=== PATIENT | male | born 1995 | race Caucasian/White ===

== ENCOUNTER 2025-06-13 18:23 | Emergency (ER) | payer SELFPAY ==
[2025-06-13 19:39] LABS: Glucose, Urine (Dipstick) Normal (Negative); Leukocyte Negative (Negative); Protein, Urine (Dipstick) Negative (Neg-Trace); Specific Gravity, Urine 1.015 (1.005-1.030)
[2025-06-13 20:28] LABS: Bacteria/HPF None Seen HPF (None Seen); CAUTI Indications for Culture Dysuria,urgency,freq; RBC/HPF None Seen HPF (0-3); Urine Culture Reflex No No; WBC/HPF None Seen HPF (0-3)
[2025-06-13 21:19] LABS: #Basophils 0.04 10x3/uL (0.0-0.2); #Eosinophils 0.13 10x3/uL (0.0-0.5); #Monocytes 0.59 10x3/uL (0.0-1.1); #Neutrophils 5.26 10x3/uL (1.5-8.4); %Basophils 0.5 % (0.0-2.0); %Eosinophils 1.5 % (0.0-6.0); %Lymphocytes 28.8 % (18.0-47.0); %Monocytes 7.0 % (0.0-10.0); %Neutrophils 62.1 % (40.0-75.0); Hematocrit 40.9 % (38.8-50.0); Hemoglobin 14.2 g/dL (13.5-17.5); Mean Corpuscular Hemoglobin 31.2 pg (27.0-33.0); Mean Corpuscular Volume 89.9 fL (81.2-95.1); Platelet Count 205 10x3/uL (150-450); Red Blood Cell (RBC) Count 4.55 10x6/uL (4.32-5.72); White Blood Cell (WBC) Count 8.47 10x3/uL (3.5-10.5)
[2025-06-13 21:34] LABS: ALT (SGPT) 10 U/L (Less than 45); AST (SGOT) 25 U/L (11-34); Albumin 5.1 g/dL (3.1-4.5); Alkaline Phosphatase 39 U/L (40-110); Anion Gap 11 mmol/L (10-20); BUN (Urea Nitrogen) 13 mg/dL (8.9-20.6); Bilirubin, Total 0.5 mg/dL (0.3-1.2); Calc. Creatinine Clearance 0 mL/min (70-130); Calcium 9.8 mg/dL (7.8-10.44); Carbon Dioxide 27 mmol/L (22-29); Chloride 105 mmol/L (98-107); Globulin 2.6 g/dL (2.4-3.5); Glucose 77 mg/dL (70-105); Lipase 18 U/L (8-78); Potassium 4.1 mmol/L (3.5-5.1); Sodium 139 mmol/L (136-145)
== END 2025-06-13 22:55 | disposition home or self-care (01) ==
LOC: CSHERS 18:23
DX: R30.0 Dysuria (principal); R35.0 Frequency of micturition; R39.15 Urgency of urination; F17.290 Nicotine dependence, other tobacco product, uncomplicated
CPT/HCPCS: 74176; 80053; 81001; 83690; 85025; 96374